=== PATIENT | female | born 1960 | race Caucasian/White ===

== ENCOUNTER 2019-01-03 17:27 | Emergency (ER) | payer OTHER ==
[2019-01-03 17:55] VITALS: BP 122/61; PULSE 93; TEMP 98.2; BMI 39.9
--- NOTE | 2019-01-03 17:56 | PDOC ---
Rapid Medical Evaluation Chief Complaint: Chest Pain Time Seen by Provider: 01/03/19 17:51 Medical Evaluation: 01/03/19 17:53 I have performed a brief in-person evaluation of this patient. The patient presents with a chief complaint of: no Sig PMhx present with complains of 2 days h/o chest tightness. report mid-sternal CP only with deep breathing. Denies CP now, SOB, palpitation, N/V, fever, chills, sweats Pertinent physical exam findings: A&O x 3 in NAD. heart RRR. lungs CTAB I have ordered the following: EKG, cbc, cmp, cardiac profile CXR The patient will proceed to the ED for further evaluation Discharge Disposition - Diagnosis Tightness in chest - Discharge Dispostion Condition at time of disposition: Stable - Referrals - Patient Instructions - Post Discharge Activity
--- NOTE | 2019-01-05 10:30 | EKG ---
Test Reason : Blood Pressure : / mmHG Vent. Rate : 093 BPM Atrial Rate : 093 BPM P-R Int : 156 ms QRS Dur : 070 ms QT Int : 350 ms P-R-T Axes : 055 -03 037 degrees QTc Int : 435 ms NORMAL SINUS RHYTHM NORMAL ECG NO PREVIOUS ECGS AVAILABLE Confirmed by JEFFREY BANDA, BRENDA ([id number]) on 01/05/2019 10:29:44 AM Referred By: Confirmed By:BRENDA MURPHY MD
== END 2019-01-03 21:12 | disposition left against medical advice (07) ==
LOC: JER 17:27
DX: R07.89 Other chest pain (principal)
CPT/HCPCS: 93005; 93010; 99281-25